=== PATIENT | female | born 1975 | race Caucasian/White ===

== ENCOUNTER 2016-07-11 14:17 | Emergency (ER) | payer MEDICAID, OTHER ==
[~2016-07-11] VITALS: Ht 165.1 cm; Wt 82.5 kg
[2016-07-11 14:49] VITALS: Ht 165.1 cm; Wt 82.5 kg
--- NOTE | 2016-07-11 16:07 | RADRPT ---
PROCEDURE: XR Abdomen 1 vw. CLINICAL INDICATION: Abdominal pain /IUD TECHNIQUE: AP view of the abdomen COMPARISON: None. FINDINGS: There is no evidence of an IUD on the abdominal film No organomegaly is identified. There is a nonspecific bowel gas pattern. There is no evidence of b owel obstruction. No free air is identified. No calculi are identified. The axial skeleton is unre markable. IMPRESSION: No IUD identified Unremarkable examination. RPTAT: [facility] .Grzegorz Humphreys MD, Date Time Electronically viewed and signed by .Grzegorz Humphreys MD, on 07/11/2016 16:07 .B/
--- NOTE | 2016-07-11 16:33 | ERD ---
ER Documentation Chief Complaint Date/Time DATE: 07/11/16 Chief Complaint Sent from MD for evaluation of IUD placement HPI The patient is a 40-year-old female who presents to the Emergency Department for evaluation of IUD placement. The patient reports that approximately six weeks ago she began to experience irregular vaginal bleeding. She was then evaluated by her primary medical provider, Dr. Huy Sheppard, who sent the patient for ultrasound imaging. Ultrasound imaging revealed an IUD in the region of the endometrial canal. The patient states that until the ultrasound was performed, she had no idea that she even had an IUD present. She believes that it may have been placed immediately after delivery of her last child, 8 years ago. Due to the presence of her IUD, Dr. Sheppard tried on two separate occasions to remove the IUD. However, no strings were seen. Another attempt was made today, but again, Dr. Sheppard was unable to identify the IUD. Therefore, she was referred to the Emergency Department with a note requesting that KUB be performed so that the IUD can better be removed. The patient denies any other complaints or concerns at this time. Denies fevers, sweats, chills, nausea, vomiting, abdominal pain, flank pain, vaginal discharge. ULTRASOUND RESULTS: 07/06/2016. FINDINGS: Portions of the uterus were visualized. The uterus is mildly enlarged and measures 10.8 x 5.9 x 5.4 cm. There is an IUD in the region of the endometrial canal, mid body region, uterus. The uterus is normal in configuration, and demonstrates a uniform echographic pattern with no solid or cystic masses. Portions of the bilateral ovaries were visualized. The right and left ovaries are normal in size and configuration. The right ovary measures 2.9 x 2.6 x 2.3 cm, while the left ovary measures 2.1 x 1.9 x 1.5 cm. Echogenicity is normal. There were no pelvic masses or abnormal fluid collections identified. The urinary bladder was within normal limits. IMPRESSION: 1. Mildly enlarged uterus with no focal masses. 2. IUD in the region of the endometrial canal, mid body region, uterus. 3. No abnormal fluid collections. Electronically signs by: Az Kasper MD. ROS All systems reviewed and are negative except as per history of present illness. Allergies Allergies: Coded Allergies: No Known Allergy (Unverified , 07/11/16) PMhx/Soc Medical and Surgical Hx: pt denies Medical Hx, pt denies Surgical Hx Physical Exam Vitals Vital Signs Date Time Temp Pulse Resp B/P Pulse Ox O2 Delivery O2 Flow Rate FiO2 07/11/16 14:49 98.5 76 20 116/61 100 Physical Exam Const: Well-developed, well-nourished, in no acute distress. Head: Atraumatic Eyes: Normal Conjunctiva ENT: Normal External Ears, Nose and Mouth. Neck: Supple. Resp: Clear to auscultation bilaterally Cardio: Regular rate and rhythm. Abd: Soft, non tender, non distended. Normal bowel sounds Skin: No petechiae or rashes Back: No midline or flank tenderness Ext: No clubbing, cyanosis, or edema. Neur: Awake and alert Psych: Normal Mood and Affect Procedures/MDM The patient's case was reviewed and discussed with Dr. Crouch, ED supervising physician, who recommends KUB to see if the IUD can be visualized, and then states that he will consult [facility]/Laborist on-call regarind the patient's case. Discussed patient case with patient's referring physician, Dr. Huy Sheppard who recommends KUB for localizing the IUD. PROCEDURE: XR Abdomen 1 vw. CLINICAL INDICATION: Abdominal pain /IUD TECHNIQUE: AP view of the abdomen COMPARISON: None. FINDINGS: There is no evidence of an IUD on the abdominal film. No organomegaly is identified. There is a nonspecific bowel gas pattern. There is no evidence of bowel obstruction. No free air is identified. No calculi are identified. The axial skeleton is unremarkable. IMPRESSION: No IUD identified. Unremarkable examination. .Grzegorz Humphreys MD, MD Date Time Electronically viewed and signed by .Grzegorz Humphreys MD, on 07/11/2016 16:07 Dr. Crouch spoke with Dr. Gonzales, laborist on-call, who stated that the patient' s case is not emergent, and does not require further in-hospital evaluation. OB/ [employer]END[facility] recommended that the patient be discharged home to follow up with [facility] as an outpatient for IUD removal . Dr. Crouch recommends discharge home with a copy of KUB results. Dr. Sheppard informed of KUB results and informed that patient needs referral to OB /[employer] ATTEND[facility] for IUD removal. Laborist recommendation discussed. MEDICAL DECISION MAKING: This is a 40-year-old female presenting to the Emergency Department for KUB in the hopes of finding her IUD. Approximately 6 weeks ago the patient began to experience vaginal bleeding, at which time an ultrasound was performed. Ultrasound revealed an "IUD in the region of the endometrial canal, mid body region, uterus." At the time, the patient notes that she had no knowledge of ever having an IUD placed. Therefore, two separate attempts were made by her primary medical provider, Dr. Sheppard, to remove the IUD , but despite extensive searching, the strings and IUD could not be found. Her second evaluation was today, at which time the patient was referred to the Emergency Department for KUB to help find the IUD. X-ray imaging performed, though IUD not visualized, and likely not radiopaque. At this time, the patient is in stable condition, with no signs of acute distress, acute/surgical abdomen , hemodynamic instability, and therefore she can be discharged home with strict return precautions for signs of deteriorating or worsening condition. She is advised to follow up with an [facility] as an outpatient for further evaluation and management, or return to the ED sooner for any new or worsening symptoms. I shared my medical decision making and plan with the patient and she verbally understands and agrees with the plan for further observation and care as an outpatient. At the time of discharge all questions were answered. Departure Diagnosis: Primary Impression: IUD threads lost Condition: Stable Patient Instructions: Control: IUD (Intrauterine Device) Additional Instructions: Your case was reviewed and discussed with [employer] employee relations representative, who recommends that you follow up with [facility] as an outpatient. Please obtain a referral from your primary medical provider to be seen by [facility] [facility] for IUD removal. Return to the ED sooner for any new or worsening symptoms. ELMO UNDERWOOD PA-C July 11, 2016 16:33
== END 2016-07-11 17:08 | disposition home or self-care (01) ==
LOC: FTE 14:17
DX: Z01.419 Encounter for gynecological examination (general) (routine) without abnormal findings (principal)
CPT/HCPCS: 74000